=== PATIENT | female | born 1990 | race Caucasian/White ===

== ENCOUNTER 2019-03-18 15:48 | Observation (INO) | payer BC ==
[2019-03-18] MEDS: Lactated Ringers 1,000 ML IV SCH ×2 (16:35→18:22)
--- NOTE | 2019-03-18 17:08 | US ---
EXAMINATION: OB Ltd 1 or More Fetus SEX: Female AGE: 28 years CLINICAL HISTORY: 28-year-old 1 Para 0 33 week female with vaginal bleeding ("spotting"). INTERPRETATION: 1. Midline uterus enlarged with a single live ( heart rate 143 bpm) intrauterine gestation longitudinal lie and cephalic presentation. 2. Healthy appearing PLACENTA lying anteriorly corpus of the uterus extends up to the fundus clearly away from the internal cervical os. No sign of retroplacental hematoma or abruption. 3. Cervical length measures from 2.3-2.4 cm and appears short. No fluid in the cervical canal. 4. Satisfactory amniotic fluid volume
[2019-03-18] MEDS ORDERED: Betamethasone Acetate/Betamethasone Sod Phosphate 30 MG/5 ML MDV IM ONE (17:41)
--- NOTE | 2019-03-18 17:45 | PCM.LDHP ---
L&D History of Present Illness - General Date of Service: 03/18/19 Admit Problem/Dx: Patient Status Order with Admit Dx/Problem 03/18/19 17:41 Patient Status [ADT] Routine Admission Diagnosis/Problem Admission Diagnosis/Problem care in third trimester - History of Present Illness Introduction:: 28-year-old at 33w1d presents to L&D for evaluation. Patient had sent a secure message at the clinic reporting some abdominal pain and vaginal spotting for the past day. Patient states the pain has been cramping off and on throughout the day. Baby has been active. No headaches or vision changes. has been uncomplicated before today. Upon arrival to L&D, patient was noted to have contractions every 5-8 minutes. Ultrasound was obtained that did not reveal any abnormalities of placenta or baby. Initial 2 blood pressure readings were abnormal so [facility] labs were obtained. 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 (See Below) (Ruptured ovarian cyst) - Past Surgical History HEENT Surgical History: Reports: Eye Surgery (x3 for lazy eye) Social & Family History - Family History Musculoskeletal: Reports: Arthritis (Maternal grandmother and paternal grandmother) Oncologic: Reports: Skin (Paternal grandfather), Other (See Below) (Maternal grandfather, unknown type) - Tobacco Use Smoking Status *Q: Never Smoker - Alcohol Use Alcohol Use Frequency: Not Used in Over 6 Months - Recreational Drug Use Recreational Drug Use: No Drug Use in Last 12 Months: No - Sexual History Sexual History: Reports: Sexually Active, Single Partner - Living Situation & Occupation Living situation: Reports: Occupation: Employed H&P Review of Systems - Review of Systems: Review Of Systems: See Below General: Reports: No Symptoms HEENT: Reports: No Symptoms Pulmonary: Reports: No Symptoms Cardiovascular: Reports: No Symptoms Gastrointestinal: Reports: Abdominal Pain Genitourinary: Reports: Other (Vaginal spotting) Musculoskeletal: Reports: No Symptoms Skin: Reports: No Symptoms L&D Exam - Exam Exam: See Below - OB Specific Fundal Height In cm: 33 Contraction Intensity: Mild to Moderate Movement: Active Heart Tones: Present Heart Tones per Min: 145 Heart Rate (FHR) Variability: Moderate (6-25 bmp) Presentation: Vertex - Kuhn Score Kuhn Score Cervix Position: Posterior Kuhn Score Consistency: Soft Kuhn Score Effacement: 0-30% Kuhn Score Dilation: 1-2 cm Kuhn Score 's Station: -3 Kuhn Score Total: 3 - Exam General: Alert, Obtunded HEENT: Conjunctiva Clear, Mucosa Moist & [place] Lungs: Clear to Auscultation, Normal Respiratory Effort Cardiovascular: Regular Rate, Regular Rhythm GI/Abdominal Exam: Soft, Non-Tender Genitourinary: Normal external exam, Cervical dilitation (03/22/-3), Other ( Small amount of blood tinged cervical discharge noted) Extremities: Normal Inspection, No Pedal Edema Skin: Warm, Dry, Intact - Patient Data Lab Results Last 24 hrs: Laboratory Results - last 24 hr 03/18/19 Range/Units 16:00 Urine Color Yellow (YELLOW) Urine Appearance Turbid (CLEAR) Urine pH 7.0 (5.0-9.0) Ur Specific [place] 1.025 (1.005-1.030) Urine Protein Negative (NEGATIVE) Urine Glucose (UA) Negative (NEGATIVE) Urine Ketones Negative (NEGATIVE) Urine Occult Blood Large H (NEGATIVE) Urine Nitrite Negative (NEGATIVE) Urine Bilirubin Negative (NEGATIVE) Urine Urobilinogen 0.2 (0.2-1.0) mg/dL Ur Leukocyte Esterase Trace H (NEGATIVE) Urine RBC 10-20 H /HPF Urine WBC 5-10 H (0-5/HPF) /HPF Ur Epithelial Cells Few (NOT SEEN) /HPF Amorphous Sediment Many H (NOT SEEN) /HPF Urine Bacteria Few (0-FEW/HPF) /HPF Urine Mucus Few H (NOT SEEN) /LPF Result Diagrams: 03/18/19 18:25 03/18/19 18:25 - Problem List (1) care SNOMED Code(s): 441095021, 31663842, 966552924, 250934944 ICD Code: Z34.90 - ENCNTR FOR SUPRVSN OF NORMAL , UNSP, UNSP TRIMESTER Status: Acute (2) contractions SNOMED Code(s): 276429639 ICD Code: O47.9 - FALSE LABOR, UNSPECIFIED Status: Acute Problem List Initiated/Reviewed/Updated: Yes Orders Last 24hrs: Active Orders 24 hr Category Date Time Status Patient Status [ADT] Routine ADT 03/18/19 17:41 Ordered Monitoring [RC] CONTINUOUS Care 03/18/19 17:42 Ordered POC Labs [RC] ASDIRECTED Care 03/18/19 17:41 Ordered Vital Signs [RC] PER UNIT ROUTINE Care 03/18/19 17:41 Ordered Regular Diet [DIET] Diet 03/18/19 Dinner Ordered CULTURE GROUP B STREP [RM] Routine Lab 03/18/19 17:42 Ordered CULTURE URINE [RM] Routine Lab 03/18/19 16:00 Received Betamet Acet/Betamet Na Phos [Celestone Soluspan 6 MG/ Med 03/18/19 17:41 Once ML] 12 mg IM ONETIME ONE Lactated Ringers [Ringers, Lactated] 1,000 ml Med 03/18/19 17:45 Ordered IV .BOLUS Resuscitation Status Routine Resus Stat 03/18/19 17:41 Ordered Medication Orders Betamethasone Acet/Betameth SodPhos (Celestone Soluspan 6 Mg/Ml) 12 mg IM ONETIME ONE Stop: 03/18/19 17:42 Lactated Ringer's (Ringers, Lactated) 1,000 mls @ 500 mls/hr IV .BOLUS MARTHA Assessment/Plan Comment:: Speculum revealed normal appearing cervix. GBS was obtained. FFN was not obtained due to interference of blood in discharge. Urinalysis was normal. PIH labs were normal. Patient received 1 dose of betamethasone. Patient was monitored for 3 hours and repeat cervical exam was performed. No change noted. Patient received 2 liters LR and contractions did space out to 8- 15 minutes apart. Patient was discharged home with labor precautions. Will present to L&D tomorrow for 2nd dose of betamethasone. Will closely monitor BPs outpatient--normalized during patient's time in the hospital. Sheri Moreno MD
== END 2019-03-18 21:00 | disposition home or self-care (01) ==
LOC: DL.OBCHECK 15:48 → DL.OB 17:41
PROVIDERS: ADMIT Family Medicine; ATTEND Family Medicine
DX: O47.03 False labor before 37 completed weeks of gestation, third trimester (principal); O26.853 Spotting complicating pregnancy, third trimester; Z3A.33 33 weeks gestation of pregnancy
CPT/HCPCS: 36415; 76815; 81001; 82565; 82570; 83615; 84156; 84450; 84460; 84520; 84550; 85027; 87081; 87086; J0702; J7120; 96360; 96361; 96372; G0378

== ENCOUNTER 2021-03-03 13:21 | Observation (INO) | payer BC ==
[2021-03-03] MEDS ORDERED: Acetaminophen 325 MG Tab PO PRN (14:11)
[2021-03-03] MEDS ORDERED: Lactated Ringers 1,000 ML IV SCH (14:15)
--- NOTE | 2021-03-03 14:16 | PCM.LDHP ---
L&D History of Present Illness - General Admit Problem/Dx: Patient Status Order with Admit Dx/Problem 03/03/21 14:11 Patient Status [ADT] Routine Admission Diagnosis/Problem Admission Diagnosis/Problem care - Related Data Allergies/Adverse Reactions: Allergies Allergy/AdvReac Type Severity Reaction Status Date / Time No Known Allergies Allergy Verified 03/29/19 16:13 Home Medications: Home Meds #103/Iron Fumarate/Fa [ ] 1 tab PO DAILY 03/18/19 [History] NIFEdipine [Procardia] 10 mg PO TID 03/29/19 [History] Past Medical History HEENT History: Reports: None Cardiovascular History: Reports: None Respiratory History: Reports: None Gastrointestinal History: Reports: None Genitourinary History: Reports: None 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: , 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 (See Below) Other OB/BYN History: ovarian cysts, hx of contractions Musculoskeletal History: Reports: None Neurological History: Reports: None Psychiatric History: Reports: None Endocrine/Metabolic History: Reports: None Hematologic History: Reports: None Immunologic History: Reports: None Oncologic (Cancer) History: Reports: None Dermatologic History: Reports: None - Infectious Disease History Infectious Disease History: Reports: None - Past Surgical History Head Surgeries/Procedures: Reports: None HEENT Surgical History: Reports: Eye Surgery Social & Family History - Family History Family Medical History: No Pertinent Family History Musculoskeletal: Reports: Arthritis Oncologic: Reports: Skin, Other (See Below) - Caffeine Use Caffeine Use: Reports: Soda - Living Situation & Occupation Living situation: Reports: Occupation: Employed Orders Last 24hrs: Active Orders 24 hr Category Date Time Status Patient Status [ADT] Routine ADT 03/03/21 14:11 Ordered Bedrest Bathroom Privileges [RC] ASDIRECTED Care 03/03/21 14:11 Ordered Monitoring [RC] PRN Care 03/03/21 14:11 Ordered POC Labs [RC] ASDIRECTED Care 03/03/21 14:11 Ordered Peripheral IV Care [RC] . DIRECTED Care 03/03/21 14:13 Ordered Vital Signs [RC] PER UNIT ROUTINE Care 03/03/21 14:11 Ordered Regular Diet [DIET] Diet 03/03/21 Dinner Ordered CULTURE GROUP B STREP [RM] Routine Lab 03/03/21 14:14 Ordered FIBRONECTIN Stat Lab 03/03/21 14:11 Ordered UA W/MICROSCOPIC [URIN] Routine Lab 03/03/21 14:11 Ordered WET PREP [MYC] Routine Lab 03/03/21 14:14 Ordered Acetaminophen [TylenoL] Med 03/03/21 14:11 Ordered 650 mg PO Q4H PRN Betamet Acet/Betamet Na Phos [Celestone Soluspan 6 MG/ Med 03/03/21 14:15 Ordered ML] 12 mg IM DAILY Lactated Ringers @ 125 MLS/HR(1000ml) Med 03/03/21 14:15 Ordered Lactated Ringers [Ringers, Lactated] 1,000 ml IV ASDIRECTED Lactated Ringers [Ringers, Lactated] 1,000 ml Med 03/03/21 14:15 Ordered IV .BOLUS Sodium Chloride 0.9% [Saline Flush] Med 03/03/21 21:00 Ordered 10 ml FLUSH 0900,2100 Peripheral IV Insertion Adult [OM.PC] Urgent Oth 03/03/21 14:11 Ordered Resuscitation Status Routine Resus Stat 03/03/21 14:11 Ordered Medication Orders Acetaminophen (Acetaminophen 325 Mg Tab) 650 mg PO Q4H PRN PRN Reason: Pain (mild 1-3) Betamethasone Acet/Betameth SodPhos (Betamethasone Acetate/Betamethasone Sod Phosphate 30 Mg/5 Ml Mdv) 12 mg IM DAILY MARTHA Stop: 03/04/21 09:01 Lactated Ringer's (Ringers, Lactated) 1,000 mls @ 500 mls/hr IV .BOLUS MARTHA Lactated Ringer's (Ringers, Lactated) 1,000 mls @ 125 mls/hr IV ASDIRECTED MARTHA Sodium Chloride (Sodium Chloride 0.9% 10 Ml Syringe) 10 ml FLUSH 0900,2100 [facility]
[2021-03-03] MEDS: Betamethasone Acetate/Betamethasone Sod Phosphate 30 MG/5 ML MDV IM SCH (14:44)
[2021-03-03] MEDS: Lactated Ringers 1,000 ML IV SCH ×2 (15:05→22:40)
[2021-03-03] MEDS ORDERED: NIFEdipine 30 MG Tab.ER PO ONE (15:16)
[2021-03-03] MEDS ORDERED: NIFEdipine 10 MG Cap PO ONE (15:21)
[2021-03-03] MEDS: metroNIDAZOLE 250 MG Tab PO SCH (15:34)
[2021-03-03] MEDS: NIFEdipine 10 MG Cap PO SCH ×2 (16:31→21:41)
[2021-03-03] MEDS ORDERED: metroNIDAZOLE/Normal Saline 500 MG in Premix Bag 100 BAG IV ONE (17:29)
[2021-03-03] MEDS ORDERED: hydrOXYzine HCl 25 MG Tab PO PRN (17:30)
[2021-03-03] MEDS: Sodium Chloride 0.9% 10 ML Syringe FLUSH SCH (21:41)
[2021-03-04] MEDS: NIFEdipine 10 MG Cap PO SCH ×2 (03:19→09:08)
[2021-03-04] MEDS: Lactated Ringers 1,000 ML IV SCH (06:07)
[2021-03-04] MEDS: metroNIDAZOLE 250 MG Tab PO SCH (09:07)
[2021-03-04] MEDS: Sodium Chloride 0.9% 10 ML Syringe FLUSH SCH (09:18)
[2021-03-04] MEDS: Betamethasone Acetate/Betamethasone Sod Phosphate 30 MG/5 ML MDV IM SCH (12:50)
== END 2021-03-04 12:50 | disposition home or self-care (01) ==
LOC: DL.OBCHECK 13:21 → DL.MS 14:11
PROVIDERS: ADMIT Family Medicine; ATTEND Family Medicine
DX: O47.9 False labor, unspecified (principal); Z79.899 Other long term (current) drug therapy
CPT/HCPCS: 59025; 81001; 82731; 87081; 87086; 87210; 96365; 96372; A9270; G0378; J0702; J3490; J7120

== ENCOUNTER 2021-04-03 02:14 | Inpatient (IN) | payer BC ==
[2021-04-03] MEDS ORDERED: Nalbuphine 10 MG/1 ML Vial IM ONE (02:22)
[2021-04-03] MEDS ORDERED: Lactated Ringers 1,000 ML IV SCH (02:30)
[2021-04-03] MEDS ORDERED: Oxytocin/Normal Saline 60 UNIT/1,000 ML BAG ONE (02:59)
[2021-04-03] MEDS ORDERED: Terbutaline 1 MG/ML SDV SUBCUT PRN (03:00)
[2021-04-03] MEDS ORDERED: Citric Acid/Sodium Citrate Solution 30 ML Cup PO ONE (03:03)
[2021-04-03] MEDS ORDERED: Citric Acid/Sodium Citrate Solution 30 ML Cup ONE (03:09)
[2021-04-03] MEDS ORDERED: ePHEDrine 50 MG/ML SDV IV ONE (03:15)
[2021-04-03] MEDS ORDERED: Dexamethasone 4 MG/ML SDV IV ONE (03:15)
[2021-04-03] MEDS ORDERED: Ondansetron 4 MG/2 ML SDV IV ONE (03:15)
[2021-04-03] MEDS ORDERED: Lactated Ringers 1,000 ML IV ONE (03:15)
[2021-04-03] MEDS ORDERED: Morphine PF 1 MG/ML Amp ONE (03:15)
[2021-04-03] MEDS ORDERED: Ketorolac 30 MG/ML SDV IVPUSH ONE (03:15)
[2021-04-03] MEDS ORDERED: Oxytocin/Normal Saline 30 UNIT/500 ML BAG IV SCH (04:00)
[2021-04-03] MEDS ORDERED: Carboprost Tromethamine 250 MCG/1 ML Amp IM PRN (04:25)
[2021-04-03] MEDS ORDERED: diphenhydrAMINE 50 MG/ML SDV IVPUSH PRN (04:25)
[2021-04-03] MEDS ORDERED: Naloxone 2 MG/2 ML Syringe IVPUSH PRN (04:25)
[2021-04-03] MEDS ORDERED: Tranexamic Acid 1,000 MG in Sodium Chloride 0.9% 100 ML IV PRN (04:25)
[2021-04-03] MEDS ORDERED: Ondansetron 4 MG/2 ML SDV IVPUSH PRN (04:25)
[2021-04-03] MEDS ORDERED: ePHEDrine 50 MG/ML SDV IVPUSH PRN (04:25)
[2021-04-03] MEDS ORDERED: Misoprostol 400 MCG (4 X 100 MCG TAB) RECTAL PRN (04:25)
[2021-04-03] MEDS ORDERED: Methylergonovine 0.2 MG/1 ML Amp IM PRN (04:25)
[2021-04-03] MEDS: Lactated Ringers 1,000 ML IV SCH ×2 (05:35→14:07)
[2021-04-03] MEDS: Simethicone 80 MG Tab.Chew PO SCH ×4 (09:00→22:48)
[2021-04-03] MEDS: Prenatal Multivitamin with Calcium/Folic Acid/Iron Tab PO SCH (09:00)
[2021-04-03] MEDS: Ketorolac 30 MG/ML SDV IVPUSH SCH ×3 (11:56→22:49)
[2021-04-03] MEDS: Docusate Sodium 100 MG Cap PO PRN (22:48)
[2021-04-04] MEDS: oxyCODONE 5 MG Tab PO PRN ×5 (06:29→21:23)
[2021-04-04] MEDS: Ibuprofen 800 MG Tab PO PRN ×3 (06:29→23:06)
[2021-04-04] MEDS: Simethicone 80 MG Tab.Chew PO SCH ×4 (08:57→21:24)
[2021-04-04] MEDS: Docusate Sodium 100 MG Cap PO PRN ×2 (08:57→21:24)
[2021-04-04] MEDS: Prenatal Multivitamin with Calcium/Folic Acid/Iron Tab PO SCH (08:58)
[2021-04-04] MEDS ORDERED: Oxytocin/Normal Saline 30 UNIT/500 ML BAG IV ONE (15:06)
[2021-04-05] MEDS: oxyCODONE 5 MG Tab PO PRN ×4 (00:13→11:34)
[2021-04-05] MEDS: Acetaminophen 325 MG Tab PO PRN ×2 (03:46→11:33)
[2021-04-05] MEDS: Ibuprofen 800 MG Tab PO PRN (08:04)
[2021-04-05] MEDS: Prenatal Multivitamin with Calcium/Folic Acid/Iron Tab PO SCH (08:04)
[2021-04-05] MEDS: Simethicone 80 MG Tab.Chew PO SCH ×2 (08:04→11:34)
[2021-04-05] MEDS: Docusate Sodium 100 MG Cap PO PRN (08:05)
== END 2021-04-05 13:00 | disposition home or self-care (01) | DRG 540 ==
LOC: DL.OB 02:14
PROVIDERS: ADMIT Student in an Organized Health Care Education/Training Program; ATTEND Student in an Organized Health Care Education/Training Program
PROC: 10D00Z1 Extraction of Products of Conception, Low, Open Approach (ICD-10-PCS; principal; 2021-04-03)
DX: O32.8XX0 Maternal care for other malpresentation of fetus, not applicable or unspecified (principal); Z3A.37 37 weeks gestation of pregnancy; Z37.0 Single live birth; Z20.822 Contact with and (suspected) exposure to COVID-19; O69.0XX0 Labor and delivery complicated by prolapse of cord, not applicable or unspecified; Z28.82 Immunization not carried out because of caregiver refusal
CPT/HCPCS: 01961; 36415; 76815; 76816; 85027; 86850; 86900; 86901; A9270-GY; J0690; J1100; J1885; J2274; J2300; J2405; J2590; J3105; J7120; U0002

== ENCOUNTER 2025-01-01 04:04 | Observation (INO) | payer BC ==
[2025-01-01 04:46] LABS: BASOPHILS PERCENT AUTO 0.3 % (0.0-1.0); EOSINOPHILS PERCENT AUTO 1.6 % (1.0-3.0); LYMPHOCYTES PERCENT AUTO 40.2 % (20.5-50.1); MONOCYTES PERCENT AUTO 10.3 % (2-8); NEUTROPHILS PERCENT AUTO 47.6 % (42.2-75.2); PLATELET COUNT,PLT 309 10^3/uL (150-450); RED BLOOD CELL COUNT 4.57 10^6/uL (4.2-5.4); WHITE BLOOD CELL COUNT,WBC 10.1 10^3/uL (5.0-10.0)
[2025-01-01] MEDS: fentaNYL 100 MCG/2 ML SDV IVPUSH ONE ×2 (04:49→05:17)
[2025-01-01] MEDS: Ondansetron 4 MG/2 ML SDV IVPUSH ONE (04:49)
[2025-01-01] MEDS: Ketorolac 30 MG/ML SDV IVPUSH ONE (04:50)
[2025-01-01 04:56] LABS: A/G RATIO 1.3; ALANINE AMINOTRANSFERASE,ALT 34.0 U/L (14-59); ASPARTATE AMNIOTRANSFERASE,AST 25.0 U/L (15-37); BILIRUBIN TOTAL 0.7 mg/dL (0.2-1.0); BLOOD UREA NITROGEN,BUN 15.0 mg/dL (7-18); CARBON DIOXIDE,CO2 28.0 mmol/L (21-32); CHLORIDE,CL 103.0 mmol/L (98-107); CREATININE 0.97 mg/dL (0.55-1.02); EST CRCL DRUG DOSING (CG) 66.32 mL/min; GLUCOSE RANDOM 145.0 mg/dL (70-99); POTASSIUM,K 3.1 mmol/L (3.5-5.1); PROTEIN TOTAL,TP 6.8 g/dL (6.4-8.2); SODIUM,NA 142.0 mmol/L (136-145)
[2025-01-01 05:01] LABS: ESTIMATED GFR 78.0 mL/min (>=60)
[2025-01-01 05:28] LABS: APPEARANCE,URINE CLOUDY (CLEAR); GLUCOSE,URINE NEGATIVE (NEGATIVE); OCCULT BLOOD,URINE LARGE (NEGATIVE)
[2025-01-01 05:36] LABS: EPITHELIAL CELLS,URINE FEW /HPF (NOT SEEN)
[2025-01-01] MEDS: Potassium Chloride 10 MEQ Tab.ER PO ONE (06:29)
[2025-01-01] MEDS ORDERED: Ondansetron 4 MG/2 ML SDV IVPUSH PRN (10:50)
[2025-01-01] MEDS: Ketorolac 30 MG/ML SDV IVPUSH PRN (11:17)
[2025-01-01] MEDS: Potassium Chloride 20 MEQ in Premix Bag 1 BAG IV ONE (11:19)
[2025-01-01] MEDS: Heparin Sodium 5,000 Units/ML Vial SUBCUT SCH (14:13)
[2025-01-02 06:31] LABS: BASOPHILS PERCENT AUTO 0.2 % (0.0-1.0); EOSINOPHILS PERCENT AUTO 2.4 % (1.0-3.0); LYMPHOCYTES PERCENT AUTO 42.5 % (20.5-50.1); MONOCYTES PERCENT AUTO 8.9 % (2-8); NEUTROPHILS PERCENT AUTO 46.0 % (42.2-75.2); PLATELET COUNT,PLT 219 10^3/uL (150-450); RED BLOOD CELL COUNT 3.97 10^6/uL (4.2-5.4); WHITE BLOOD CELL COUNT,WBC 5.5 10^3/uL (5.0-10.0)
[2025-01-02 07:06] LABS: BLOOD UREA NITROGEN,BUN 10.0 mg/dL (7-18); CARBON DIOXIDE,CO2 27.0 mmol/L (21-32); CHLORIDE,CL 109.0 mmol/L (98-107); CREATININE 0.71 mg/dL (0.55-1.02); EST CRCL DRUG DOSING (CG) 90.61 mL/min; GLUCOSE RANDOM 89.0 mg/dL (70-99); POTASSIUM,K 3.6 mmol/L (3.5-5.1); SODIUM,NA 142.0 mmol/L (136-145)
[2025-01-02 07:07] LABS: ESTIMATED GFR 113.0 mL/min (>=60)
== END 2025-01-03 11:06 | disposition home or self-care (01) ==
LOC: DL.ED 04:04 → DL.MS 07:03
PROVIDERS: ADMIT Internal Medicine; ATTEND Internal Medicine
DX: N13.2 Hydronephrosis with renal and ureteral calculous obstruction (principal); R11.2 Nausea with vomiting, unspecified; N12 Tubulo-interstitial nephritis, not specified as acute or chronic; F41.8 Other specified anxiety disorders; F90.9 Attention-deficit hyperactivity disorder, unspecified type; R73.9 Hyperglycemia, unspecified; D72.829 Elevated white blood cell count, unspecified; Z88.8 Allergy status to other drugs, medicaments and biological substances; Z79.899 Other long term (current) drug therapy
CPT/HCPCS: 36415; 74176; 80048; 80053; 81001; 83036; 83735; 84703; 85025; 87086; 87088; 87186; A9270; J0696; J1644; J1885; J2405; J3010; J3480; J7030; 96361; 96365; 96366; 96372; 96375; 96376; 99223; 99232; 99239; G0378

== ENCOUNTER 2025-01-05 03:27 | Emergency (ER) | payer BC ==
[2025-01-05] MEDS: Ondansetron 4 MG/2 ML SDV IVPUSH ONE (04:13)
[2025-01-05] MEDS: fentaNYL 100 MCG/2 ML SDV IVPUSH ONE (04:15)
[2025-01-05] MEDS: Ketorolac 30 MG/ML SDV IVPUSH ONE (04:17)
[2025-01-05 04:27] LABS: BASOPHILS PERCENT AUTO 0.2 % (0.0-1.0); EOSINOPHILS PERCENT AUTO 1.9 % (1.0-3.0); LYMPHOCYTES PERCENT AUTO 27.0 % (20.5-50.1); MONOCYTES PERCENT AUTO 8.4 % (2-8); NEUTROPHILS PERCENT AUTO 62.5 % (42.2-75.2); PLATELET COUNT,PLT 252 10^3/uL (150-450); RED BLOOD CELL COUNT 4.72 10^6/uL (4.2-5.4); WHITE BLOOD CELL COUNT,WBC 8.3 10^3/uL (5.0-10.0)
[2025-01-05 04:29] LABS: APPEARANCE,URINE SLIGHTLY CLOUDY (CLEAR); GLUCOSE,URINE NEGATIVE (NEGATIVE); OCCULT BLOOD,URINE MODERATE (NEGATIVE)
[2025-01-05 04:33] LABS: A/G RATIO 1.0; ALANINE AMINOTRANSFERASE,ALT 129 U/L (14-59); ASPARTATE AMNIOTRANSFERASE,AST 98 U/L (15-37); BILIRUBIN TOTAL 0.4 mg/dL (0.2-1.0); BLOOD UREA NITROGEN,BUN 9 mg/dL (7-18); CARBON DIOXIDE,CO2 25 mmol/L (21-32); CHLORIDE,CL 104 mmol/L (98-107); CREATININE 0.83 mg/dL (0.55-1.02); EST CRCL DRUG DOSING (CG) 77.51 mL/min; GLUCOSE RANDOM 96 mg/dL (70-99); POTASSIUM,K 3.8 mmol/L (3.5-5.1); PROTEIN TOTAL,TP 7.6 g/dL (6.4-8.2); SODIUM,NA 141 mmol/L (136-145)
[2025-01-05 04:34] LABS: ESTIMATED GFR 94 mL/min (>=60)
[2025-01-05 04:38] LABS: EPITHELIAL CELLS,URINE MANY /HPF (NOT SEEN)
== END 2025-01-05 07:31 ==
LOC: DL.ED 03:27
DX: N13.2 Hydronephrosis with renal and ureteral calculous obstruction (principal); Z88.8 Allergy status to other drugs, medicaments and biological substances; Z79.899 Other long term (current) drug therapy
CPT/HCPCS: 36415; 74176; 80053; 81001; 83735; 85025; 86140; 87086; 96361; 96374; 96375; 99285; A9270; J1885; J2405; J3010; J7030; 99283